=== PATIENT | male | born 1945 | race Caucasian/White ===

== ENCOUNTER 2016-12-01 10:31 | Emergency (ER) | payer BC ==
[~2016-12-01] VITALS: Ht 177.8 cm; Wt 83.0 kg
[2016-12-01 10:39] VITALS: TEMP 36.7; Ht 177.8 cm; Wt 83.0 kg
[2016-12-01] MEDS ORDERED: OMEP40CA41 PO (10:55)
[2016-12-01] MEDS ORDERED: OMEP1POW2 (10:55)
[2016-12-01] MEDS ORDERED: FENO160T PO (10:55)
[2016-12-01] MEDS ORDERED: AMLO-114 PO (10:55)
[2016-12-01] MEDS ORDERED: LPT/40 PO (10:55)
[2016-12-01 11:05] LABS: BASO % 0.2 %; BASO ABS # 0.02 K/uL (0-0.2); COMPLETE YES; EOS % 5.3 %; HEMATOCRIT 55.2 % (42-52); IG% 0.2 %; LYMPH % 31.2 %; LYMPH ABS # 3.02 K/uL (1.2-3.4); MEAN CELL VOLUME 88.6 fL (80-100); MEAN CORPUSCULAR HEMOGLOBIN 30.7 pg (25-34); MEAN CORPUSCULAR HGB CONC 34.6 g/dl (32-36); MEAN PLATELET VOLUME 11.7 fL (7.4-10.4); NEUT % 59.1 %; PLATELET COUNT 228 K/uL (130-400); RED BLOOD COUNT 6.23 M/uL (4.7-6.1); WHITE BLOOD COUNT 9.67 K/uL (4.8-10.8)
[2016-12-01 11:14] LABS: BUN/CREATININE RATIO 12.2 (10-20); CALCIUM 9.4 mg/dl (8.5-10.1); CREATININE 1.7 mg/dl (0.60-1.40); POTASSIUM 3.7 mmol/L (3.5-5.1)
[2016-12-01 11:17] LABS: ALB/GLOB RATIO 1.1 (0.9-2)
[2016-12-01 12:06] LABS: URINE APPEARANCE CLEAR (CLEAR); URINE COLOR DK YELLOW; URINE EPITHELIAL CELL AUTO 20-30 /lpf (0-5); URINE NITRITE NEG (NEG); URINE SPECIFIC GRAVITY 1.024 (1.000-1.030); UROBILINOGEN NEG (NEG); ZZUR CULT IF INDIC CLEAN CATCH NO
[2016-12-01 12:09] LABS: MANUAL MICROSCOPIC REQUIRED? NO; REVIEW REQ? YES
[2016-12-01 12:16] LABS: URINE BILIRUBIN NEG (NEG)
[2016-12-01 12:20] LABS: URINE MUCUS PRESENT (NONE PRSENT)
[2016-12-01 12:21] LABS: URINE PATH CASTS 0-3 GRANULAR CASTS /lpf (0)
[2016-12-01] MEDS ORDERED: ONDANSETRON INJ 2 MG/ML 2 ML VIAL IV STA (12:41)
[2016-12-01] MEDS ORDERED: SODIUM CHLORIDE 0.9% 1000ML 1,000 ML IV STA (12:41)
--- NOTE | 2016-12-01 12:46 | EMERGENCY ROOM VISIT NOTE ---
History Report prepared by Sloan: Lincoln Mayo Under the Supervision of: Dr. Chuck Wang M.D. First contact with patient: 12:24 Chief Complaint: ABDOMINAL PAIN Stated Complaint: ABDOMINAL PAIN Nursing Triage Summary: triage note [place] reports of abdominal pain with n/v/d x three this am, pt reports pain is now down to a 4/10 History of Present Illness The patient is a 71 year old male who presents to the Emergency Room with complaints of resolved abdominal pain that occurred this morning. He rates his pain as a 4/10 in severity. The patient describes his pain as a stabbing sensation. He states that he ate leftover [place] food last night around 1900, but admits he had no symptoms following eating. The patient states that he woke up this morning with severe abdominal pain. He states that he went to the bathroom and experienced vomiting multiple times, with his last episode at 1000. The patient also admits to experiencing four episodes of diarrhea and diaphoresis. He states that his pain was worsened with walking, which prompted him to call the ambulance to come to the ED. The patient states that he is no longer experiencing any of these symptoms. He admits that he takes medication for his hypertension and hyperlipidemia. He denies any fevers, chills, chest pain, shortness of breath, headaches, and dizziness. Source of History: patient Onset: this morning Position: abdomen Symptom Intensity: 4/10 Quality: stabbing Timing: resolved Modifying Factors (Worsening): other (walking) Associated Symptoms: + nausea, + vomiting, + diarrhea, No fevers, No chills , No headache, No chest pain, No SOB Review of Systems See HPI for pertinent positives and negatives. A total of ten systems were reviewed and were otherwise negative. Past Medical & Surgical Medical Problems: (1) Hyperlipidemia (2) Hypertension Family History Patient reports no known family medical history. Social History Smoking Status: Never Smoker Drug Use: none Marital Status: Housing Status: lives with significant other Occupation Status: retired Current/Historical Medications Scheduled Amlodipine (Norvasc), 10 MG PO DAILY Atorvastatin (Lipitor), 40 MG PO DAILY Fenofibrate (Tricor), 160 MG PO DAILY Omeprazole (Prilosec), 40 MG PO DAILY Ondasetron Odt (Zofran Odt), 4 MG SL Q6H Miscellaneous Medications Omeprazole (Bulk) (Omeprazole) Allergies Coded Allergies: No Known Allergies (Unverified , 12/01/16) Physical Exam Vital Signs Date Time Temp Pulse Resp B/P (MAP) Pulse Ox O2 Delivery O2 Flow Rate FiO2 12/01/16 14:04 55 18 129/82 96 12/01/16 13:03 55 20 136/87 94 Room Air 12/01/16 10:39 36.7 52 18 122/86 95 Room Air Physical Exam GENERAL: Awake, alert, well-appearing, in no distress HENT: Normocephalic, atraumatic. Dry mucous membranes. Oropharynx otherwise unremarkable. EYES: Normal conjunctiva. Sclera non-icteric. NECK: Supple. No nuchal rigidity. FROM. No JVD. RESPIRATORY: Clear to auscultation. CARDIAC: Regular rate, normal rhythm. Extremities warm and well perfused. Pulses equal. ABDOMEN: Soft, non-distended. No tenderness to palpation. No rebound or guarding. No masses. RECTAL: Deferred. MUSCULOSKELETAL: Chest examination reveals no tenderness. The back is symmetrical on inspection without obvious abnormality. There is no CVA tenderness to palpation. No joint edema. LOWER EXTREMITIES: Calves are equal size bilaterally and non-tender. No edema. No discoloration. NEURO: Normal sensorium. No sensory or motor deficits noted. SKIN: No rash or jaundice noted. Medical Decision & Procedures ER Provider Diagnostic Interpretation: Radiology results as stated below per my review and my interpretation: ULTRASOUND: No gallstones or pericholecystic fluid. Laboratory Results 12/01/16 10:20 Red Blood Count 6.23, Mean Corpuscular Volume 88.6, Mean Corpuscular Hemoglobin 30.7, Mean Corpuscular Hemoglobin Concent 34.6, Mean Platelet Volume 11.7, Neutrophils (%) (Auto) 59.1, Lymphocytes (%) (Auto) 31.2, Monocytes (%) (Auto) 4.0, Eosinophils (%) (Auto) 5.3, Basophils (%) (Auto) 0.2, Neutrophils # (Auto) 5.71, Lymphocytes # (Auto) 3.02, Monocytes # (Auto) 0.39, Eosinophils # (Auto) 0.51, Basophils # (Auto) 0.02 12/01/16 10:20 Test 12/01/16 10:20 12/01/16 11:45 White Blood Count 9.67 K/uL (4.8-10.8) Red Blood Count 6.23 M/uL (4.7-6.1) Hemoglobin 19.1 g/dL (14.0-18.0) Hematocrit 55.2 % (42-52) Mean Corpuscular Volume 88.6 fL (80-100) Mean Corpuscular Hemoglobin 30.7 pg (25-34) Mean Corpuscular Hemoglobin Concent 34.6 g/dl (32-36) Platelet Count 228 K/uL (130-400) Mean Platelet Volume 11.7 fL (7.4-10.4) Neutrophils (%) (Auto) 59.1 % Lymphocytes (%) (Auto) 31.2 % Monocytes (%) (Auto) 4.0 % Eosinophils (%) (Auto) 5.3 % Basophils (%) (Auto) 0.2 % Neutrophils # (Auto) 5.71 K/uL (1.4-6.5) Lymphocytes # (Auto) 3.02 K/uL (1.2-3.4) Monocytes # (Auto) 0.39 K/uL (0.11-0.59) Eosinophils # (Auto) 0.51 K/uL (0-0.5) Basophils # (Auto) 0.02 K/uL (0-0.2) RDW Standard Deviation 46.6 fL (36.4-46.3) RDW Coefficient of Variation 14.5 % (11.5-14.5) Immature Granulocyte % (Auto) 0.2 % Immature Granulocyte # (Auto) 0.02 K/uL (0.00-0.02) Anion Gap 8.0 mmol/L (3-11) Est Creatinine Clear Calc Drug Dose 40.6 ml/min Estimated GFR () 45.7 Estimated GFR (Non- 39.4 BUN/Creatinine Ratio 12.2 (10-20) Calcium Level 9.4 mg/dl (8.5-10.1) Total Bilirubin 0.7 mg/dl (0.2-1) Aspartate Amino Transf (AST/SGOT) 29 U/L (15-37) Alanine Aminotransferase (ALT/SGPT) 32 U/L (12-78) Alkaline Phosphatase 52 U/L (45-117) Total Protein 7.5 gm/dl (6.4-8.2) Albumin 4.0 gm/dl (3.4-5.0) Globulin 3.5 gm/dl (2.5-4.0) Albumin/Globulin Ratio 1.1 (0.9-2) Lipase 8868 U/L (73-393) Urine Color DK YELLOW Urine Appearance CLEAR (CLEAR) Urine pH 5.0 (4.5-7.5) Urine Specific [place] 1.024 (1.000-1.030) Urine Protein 1+ (NEG) Urine Glucose (UA) NEG (NEG) Urine Ketones TRACE (NEG) Urine Occult Blood NEG (NEG) Urine Nitrite NEG (NEG) Urine Bilirubin NEG (NEG) Urine Urobilinogen NEG (NEG) Urine Leukocyte Esterase TRACE (NEG) Urine WBC (Auto) 1-5 /hpf (0-5) Urine RBC (Auto) 0-4 /hpf (0-4) Urine Hyaline Casts (Auto) 1-5 /lpf (0-5) Urine Epithelial Cells (Auto) 20-30 /lpf (0-5) Urine Bacteria (Auto) NEG (NEG) Urine Pathogenic Casts 0-3 GRANULAR CASTS /lpf (0) Urine Mucus PRESENT (NONE PRSENT) Laboratory results reviewed by me Medications Administered Medications (Trade) Dose Ordered Sig/Mega Route Start Time Stop Time Status Last Admin Dose Admin Ondansetron HCl (Zofran Inj) 4 mg NOW STAT IV 12/01/16 12:41 12/01/16 12:44 DC 12/01/16 13:03 4 MG ED Course 1231: The patient was evaluated in room C07. A complete history and physical exam was performed. 1241: Zofran Injection 4 mg IV, Sodium Chloride 1000 ml @ 999 mls/hr IV. 1247: I reevaluated the patient and he is resting comfortably. I discussed his lab results with him. 1335: I performed a bedside ultrasound. I discussed the patient's results and discussed the treatment plan with him. He understands and agrees to the plan. The patient was discharged. Medical Decision I reviewed the patient's past medical history, medications, and the nursing notes as described above. Triage Nursing notes reviewed. The patient's presentation and history were concerning for food poisoning, acute gastroenteritis, pancreatitis, biliary etiology, obstruction, and diverticulitis. Patient is a 71-year-old gentleman who presents to the emergency department with abdominal pain and nausea and vomiting that occurred this morning in the setting of eating leftover [place] food at the [employer] fair per history of present illness. Arrival of the patient is well-appearing asymptomatic and reports that all his symptoms have entirely resolved. On exam the patient's abdomen is soft nontender. Critical pathway labs sent demonstrating an elevated creatinine patient says he is followed for by his doctor in [place]. Otherwise notable for elevated lipase at 8000s. LFTs otherwise were unremarkable. However bedside ultrasound was done and was negative for gallstones or pericholecystic fluid, CBD grossly normal size. Considering patient's elevated lipase in the setting of otherwise no other symptoms I discussed with the patient possibility of different causes including but not limited to cancer. Pancreatic cancer can be rather aggressive but without any significant signs early on I suggested we do a CT scan. However the patient preferred to follow up with his doctor as soon as he returns to [place] next week. He understood the risks of any delay. Otherwise the patient continued to be well-appearing with able tolerate fluids and crackers orally without difficulty. Findings and plan for follow-up d/w patient. Patient agreeable and d/c'd per discharge instructions. Medication Reconcilliation Current Medication List: was personally reviewed by me Blood Pressure Screening Patient's blood pressure: Elevated blood pressure Blood pressure disposition: Elevated BP felt to be situational Impression Primary Impression: Acute gastroenteritis Additional Impression: Pancreatitis Scribe Attestation The scribe's documentation has been prepared under my direction and personally reviewed by me in its entirety. I confirm that the note above accurately reflects all work, treatment, procedures, and medical decision making performed by me. Departure Information Dispostion Home / Self-Care Prescriptions Ondasetron Odt (ZOFRAN ODT) 4 Mg Tab 4 MG SL Q6H for Nausea, #6 TAB Prov: Chuck Wang M.D. 12/01/16 Forms HOME CARE DOCUMENTATION FORM, IMPORTANT VISIT INFORMATION Patient Instructions ED Food Poison Or Gastroenteritis, ED Pancreatitis, [facility], Pancreatitis Acute Dc Additional Instructions Please follow up with your primary care physician in the next week for reevaluation and to repeat your pancreas and kidney lab tests. If you'r pancreas tests do not improve you and your physician may consider imaging to rule out possible causes including but not limited to cancer. Otherwise, your exam, gallbladder ultrasound, and lab tests did not show signs of an emergent condition at this time. Zofran as needed for nausea. Return to the emergency department for worsening symptoms as described in the accompanying instructions. Problem Qualifiers
[2016-12-01] MEDS ORDERED: ONDA4TAB10 SL (13:47)
[2016-12-01 14:04] VITALS: BP 129/82; PULSE 55; O2SAT 96
== END 2016-12-01 14:06 | disposition home or self-care (01) ==
LOC: EDBD 10:31 → C.EDC 10:33
DX: K52.9 Noninfective gastroenteritis and colitis, unspecified (principal); K85.90 Acute pancreatitis without necrosis or infection, unspecified; E78.5 Hyperlipidemia, unspecified; I10 Essential (primary) hypertension; Z79.899 Other long term (current) drug therapy